=== PATIENT | male | born 1995 | race Caucasian/White ===

== ENCOUNTER 2017-09-19 17:35 | Emergency (ER) | payer OTHER ==
[2017-09-19 17:40] VITALS: BP 140/79; PULSE 90; RESP 18; TEMP 98.4
[2017-09-19] MEDS ORDERED: DIPH,PERTUS(ACELL)TETVAC-LF 0.5 ML VIAL IM ONE (17:45)
--- NOTE | 2017-09-19 17:48 | ED ---
General Adult HPI - General Chief complaint: Extremity Injury, Lower Stated complaint: stepped on nail, rt foot Time Seen by Provider: 09/19/17 17:40 Source: patient, RN notes reviewed Mode of arrival: ambulatory Limitations: no limitations - History of Present Illness Initial comments: Patient 22-year-old male presented to the emergency room today with a chief complaint of a puncture wound to the right foot. He states he was cutting through an alley going to work when he stepped on a board with a nail in it. States went through his shoe. Patient does admit that was bleeding. He states unsure of his tetanus status. Denies any other complaints or symptoms. Patient denies any recent fever, chills, shortness of breath, chest pain, back pain, abdominal pain, nausea or vomiting, numbness or tingling, headaches or visual changes, or any other complaints. - Related Data Previous Rx's Medication Instructions Recorded Ciprofloxacin HCl [Cipro] 500 mg PO Q12HR #20 day 09/19/17 Allergies Allergy/AdvReac Type Severity Reaction Status Date / Time No Known Allergies Allergy Verified 09/19/17 17:37 Review of Systems ROS Statement: Those systems with pertinent positive or pertinent negative responses have been documented in the HPI. ROS Other: All systems not noted in ROS Statement are negative. Past Medical History Past Medical History: No Reported History History of Any Multi-Drug Resistant Organisms: None Reported Past Surgical History: No Surgical Hx Reported Past Psychological History: ADD/ADHD Smoking Status: Current some day smoker Past Alcohol Use History: None Reported Past Drug Use History: None Reported General Exam - General Exam Comments Initial Comments: General: The patient is awake and alert, in no distress, and does not appear acutely ill. Neck: The neck is supple, there is no tenderness or JVD. Musculoskeletal: Full range of motion. Sensation intact. Pulses equal bilaterally 2+ patient strength is 5/5. Neurological: A&O x 3. CN II-XII intact, There are no obvious motor or sensory deficits. Coordination appears grossly intact. Speech is normal. Skin: No bleeding. No sign of redness. No visualized wound. Psychiatric: Normal mood and affect. Limitations: no limitations Course Vital Signs 09/19/17 17:37 Temperature 98.4 F Pulse Rate 90 Respiratory 18 Rate Blood Pressure 140/79 O2 Sat by Pulse 96 Oximetry Medical Decision Making - Medical Decision Making Patient's tetanus updated here in emergency room we started on antibiotics. Patient will be started on Cipro has nail did go through his shoe. Patient arrives watch for signs of infection. Advised return for any other concerns. Disposition Clinical Impression: Puncture wound Disposition: HOME SELF-CARE Condition: Good Instructions: Puncture Wound (ED) Additional Instructions: Please use medication as discussed. Please follow-up with family doctor in the next 2 days of symptoms have not improved. Please return to emergency room if the symptoms increase or worsen or for any other concerns. Prescriptions: Ciprofloxacin HCl [Cipro] 500 mg PO Q12HR #20 day Referrals: None,Stated [Primary Care Provider] - 1-2 days Lennie Turcios MD [STAFF PHYSICIAN] - 1-2 days Time of Disposition: 17:47
== END 2017-09-19 18:14 | disposition home or self-care (01) ==
LOC: EC 17:35
DX: S91.331A Puncture wound without foreign body, right foot, initial encounter (principal); F17.200 Nicotine dependence, unspecified, uncomplicated; Z23 Encounter for immunization; W45.0XXA Nail entering through skin, initial encounter; Y93.89 Activity, other specified
CPT/HCPCS: 90471; 90715; 99283

== ENCOUNTER 2018-07-05 14:26 | Emergency (ER) | payer OTHER ==
[2018-07-05 14:33] VITALS: RESP 18
[2018-07-05] MEDS ORDERED: predniSONE 10 MG TAB PO STA (15:15)
[2018-07-05] MEDS ORDERED: valACYclovir HCL 1,000 MG TABLET PO STA (15:16)
--- NOTE | 2018-07-05 15:21 | ED ---
General Adult HPI - General Chief complaint: Neuro Symptoms/Deficit Stated complaint: Rt side of face numb Time Seen by Provider: 07/05/18 14:47 Source: patient, RN notes reviewed Mode of arrival: ambulatory Limitations: no limitations - History of Present Illness Initial comments: 22-year-old male without any past medical history presents to the emergency department for a chief complaint of right-sided facial numbness times one day. Patient states this started yesterday. Patient states he initially had pain behind his right ear but this has resolved. Patient states he now feels like he can't smile completely. He states his right eye doesn't close as tightly as his left eye. Patient states that is also somewhat affected. Patient denies any injuries. He denies any fevers or chills. Patient has no other complaints at this time including shortness of breath, chest pain, abdominal pain, nausea or vomiting, headache, or visual changes. - Related Data Previous Rx's Medication Instructions Recorded predniSONE [Deltasone] 60 mg PO DAILY 7 Days tablet 07/05/18 valACYclovir HCL [Valacyclovir] 1,000 mg PO TID 7 Days tab 07/05/18 Allergies Allergy/AdvReac Type Severity Reaction Status Date / Time No Known Allergies Allergy Verified 07/05/18 14:47 Review of Systems ROS Statement: Those systems with pertinent positive or pertinent negative responses have been documented in the HPI. ROS Other: All systems not noted in ROS Statement are negative. Past Medical History Past Medical History: No Reported History History of Any Multi-Drug Resistant Organisms: None Reported Past Surgical History: No Surgical Hx Reported Past Psychological History: ADD/ADHD Smoking Status: Current some day smoker Past Alcohol Use History: None Reported Past Drug Use History: None Reported General Exam Limitations: no limitations General appearance: alert, in no apparent distress Head exam: Present: atraumatic, normocephalic, normal inspection Eye exam: Present: normal appearance, PERRL, EOMI. Absent: scleral icterus, conjunctival injection, periorbital swelling, other (patient unable to lift eye brow, flat forehead without wrinkles when attemptnig to lift eye brow, facial sensaion is intact) ENT exam: Present: normal exam, mucous membranes moist Neck exam: Present: normal inspection, full ROM. Absent: tenderness, meningismus, lymphadenopathy Respiratory exam: Present: normal lung sounds bilaterally. Absent: respiratory distress, wheezes, rales, rhonchi, stridor Cardiovascular Exam: Present: regular rate, normal rhythm, normal heart sounds. Absent: systolic murmur, diastolic murmur, rubs, gallop, clicks Neurological exam: Present: alert, oriented X3, CN II-XII intact, normal gait Expanded Patient oriented to: Present: person, place, time Speech: Present: fluid speech Cranial nerves: EOM's Intact: Normal, Tongue Deviation: Normal, Facial Sensation : Normal, Facial Palsy without Forehead Movement: Normal Sensory exam: Upper Extremity Light Touch: Normal, Upper Extremity Pin Prick: Normal, Lower Extremity Light Touch: Normal, Lower Extremity Pin Prick: Normal Motor strength exam: RUE: 5 (no drift), LUE: 5 (no drift), RLE: 5 (no drift), LLE: 5 (no drift) Eye Response: (4) open spontaneously Motor Response: (6) obeys commands Verbal Response: (5) oriented [place] Total: 15 Psychiatric exam: Present: normal affect, normal mood Course Vital Signs 07/05/18 07/05/18 14:32 15:48 Temperature 98.0 F 98.2 F Pulse Rate 94 79 Respiratory 18 18 Rate Blood Pressure 153/94 140/90 O2 Sat by Pulse 97 99 Oximetry Medical Decision Making - Medical Decision Making 22-year-old male presents to the emergency department for a chief complaint of right-sided facial weakness 2 days. Patient states this started yesterday. Patient states he feels as if he cannot smile. On exam patient does have weakness noted to the right side of the face including with smiling and raising his eyebrows. Forehead involvement noted. Sensation intact. Complaining of drooling. Patient is able to close right eye lightly but is not able to close the right eye tightly. Patient is well-appearing. It also within acceptable limits. Neuro exam otherwise unremarkable. Dr. Mata also visualized the patient. 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 Patient was given valacyclovir and prednisone. He will f/u with primary and return if he has any worsening symptoms. Disposition Clinical Impression: Wilhelm's palsy Disposition: HOME SELF-CARE Condition: Good Instructions: Wilhelm Palsy (ED) Additional Instructions: Please follow up with primary care in 1-2 days. Take medications as directed. Tape the right eye down at night so it you do not have drying of the cornea. If symptoms worsen return to the emergency department. Prescriptions: predniSONE [Deltasone] 60 mg PO DAILY 7 Days tablet valACYclovir HCL [Valacyclovir] 1,000 mg PO TID 7 Days tab Is patient prescribed a controlled substance at d/c from ED?: No Referrals: Lennie Turcios MD [STAFF PHYSICIAN] - 1-2 days Time of Disposition: 15:16
[2018-07-05 15:49] VITALS: BP 140/90; PULSE 79; TEMP 98.2
== END 2018-07-05 16:04 | disposition home or self-care (01) ==
LOC: EC 14:26
DX: G51.0 Bell's palsy (principal); F17.200 Nicotine dependence, unspecified, uncomplicated
CPT/HCPCS: 99283; J7512